=== PATIENT | female | born 1980 | race Caucasian/White ===

== ENCOUNTER 2018-01-25 11:12 | Emergency (ER) | payer OTHER ==
[2018-01-25 11:41] LABS: Urine Blood NEGATIVE (NEG); Urine Glucose NEGATIVE (NEG); Urine Protein NEGATIVE (NEG); Urine Specific Gravity 1.015 (1.005-1.030); Urine pH 5.5 (5.0-7.0)
[2018-01-25] MEDS ORDERED: LIDOCAINE VISCOUS 2% SOLN 15 ML UDC ONE (11:55)
[2018-01-25] MEDS ORDERED: MAGNE/ALUM HYDROXD 30 ML UCUP ONE (11:56)
[2018-01-25] MEDS ORDERED: ASPIRIN 81 MG CHEWABLE TABLET ONE (11:57)
[2018-01-25] MEDS ORDERED: PANTOPRAZOLE 40 MG INJ ONE (11:57)
[2018-01-25] MEDS ORDERED: NA CHLORIDE 0.9% 500 ML ONE (11:57)
[2018-01-25 12:07] LABS: Absolute Lymphocytes (CBC) 1.9 K/uL (0.7-4.9); Absolute Monocytes 0.8 K/uL (0.1-1.3); Absolute Neutrophil 6.2 K/uL (1.8-8.0); Basophils % 0.7 % (0-1.3); Eosinophils % 2.8 % (0-4.4); Hematocrit 45.4 % (36.0-45.0); Lymphocytes % 20.7 % (15.3-44.8); MCH 30.1 pg (27.0-35.0); MCV 91.1 fL (80-100); MPV 9.6 fL (7.6-11.3); Monocytes % 8.5 % (3.3-12.3); RBC Red Blood Cell Count 4.99 M/uL (3.86-4.86)
[2018-01-25 12:12] LABS: Protime INR 1.09
[2018-01-25] MEDS ORDERED: FAMOTIDINE 20 MG/2 ML VIAL IV ONE (12:16)
--- NOTE | 2018-01-25 12:23 | RAD REPORT ---
EXAM DESCRIPTION: RAD - Chest Single View - 01/25/2018 12:17 pm CLINICAL HISTORY: CHEST PAIN Chest pain. COMPARISON: No comparisons FINDINGS: Portable technique limits examination quality. The lungs are grossly clear. The heart is normal in size. No displaced fractures. IMPRESSION: No acute intrathoracic process suspected.
[2018-01-25 12:28] LABS: ALT/SGPT 31 U/L (12-78); AST/SGOT 17 U/L (15-37); Albumin 3.6 g/dL (3.4-5.0); Alkaline Phosphatase 92 U/L (45-117); BUN Blood Urea Nitrogen 13 mg/dL (7-18); Bicarbonate 30 mmol/L (21-32); Bilirubin Direct 0.1 mg/dL (0-0.2); Bilirubin Total 0.4 mg/dL (0.2-1.0); CKMB Creatine Kinase MB < 1.0 ng/mL (0.3-3.6); Creatine Phosphokinase 46 U/L (26-192); Glucose Level 101 mg/dL (74-106); NT PRO-BNP 143 pg/mL (<125); Potassium 4.5 mmol/L (3.5-5.1); Protein, Total 7.5 g/dL (6.4-8.2); Sodium Level 141 mmol/L (136-145)
--- NOTE | 2018-01-25 15:05 | EDPHYS ---
Physician Documentation [facility] Name: Amina Estrada Age: 37 yrs Sex: Female : 1980 Arrival Date: 01/25/2018 Time: 11:15 Bed 20 Private MD: None, None ED Physician Chris Pepper HPI: 01/25 11:40 This 37 yrs old Female presents to ER via Ambulatory with complaints of Chest cp Pain. 11:41 The patient or guardian reports chest pain that is located primarily in the substernal cp area, anterior chest wall, bilaterally. The pain does not radiate. The chest pain is described as a pressure. Duration: The patient or guardian reports a single episode, that is still ongoing, and unchanged. 11:41 Associated signs and symptoms: Pertinent negatives: abdominal pain, cough, diaphoresis, cp dizziness, headache, lower extremity pain, lower extremity swelling, near syncope, palpitations, recent travel, syncope. 11:41 Severity of pain: in the emergency department the pain is unchanged despite home cp interventions. 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 - Social history:: Smoking status: Patient/guardian denies using tobacco. - Ebola Screening: : No symptoms or risks identified at this time. ROS: 11:45 Constitutional: Negative for body aches, chills, fever, poor PO intake. cp 11:45 Eyes: Negative for injury, pain, redness, and discharge. cp 11:45 ENT: Negative for drainage from ear(s), ear pain, sore throat, difficulty swallowing, difficulty handling secretions. 11:45 Cardiovascular: Positive for chest pain, Negative for edema, palpitations. 11:45 Respiratory: Negative for cough, shortness of breath, wheezing. 11:45 Abdomen/GI: Negative for abdominal pain, nausea, vomiting, and diarrhea, black/tarry stool, rectal bleeding. 11:45 Back: Positive for pain at rest. 11:45 : Negative for urinary symptoms. 11:45 Skin: Negative for cellulitis, rash. 11:45 Neuro: Negative for altered mental status, dizziness, headache, syncope, near syncope, weakness. 11:45 All other systems are negative. Exam: 11:48 Constitutional: The patient appears in no acute distress, alert, awake, cp non-diaphoretic, non-toxic, well developed, well nourished, obese. 11:48 Head/Face: Normocephalic, atraumatic. Eyes: Pupils equal round and reactive to light, cp extra-ocular motions intact. Lids and lashes normal. Conjunctiva and sclera are non-icteric and not injected. Cornea within normal limits. Periorbital areas with no swelling, redness, or edema. ENT: Nares patent. No nasal discharge, no septal abnormalities noted. Tympanic membranes are normal and external auditory canals are clear. Oropharynx with no redness, swelling, or masses, exudates, or evidence of obstruction, uvula midline. Mucous membranes moist. Neck: Trachea midline, no thyromegaly or masses palpated, and no cervical lymphadenopathy. Supple, full range of motion without nuchal rigidity, or vertebral point tenderness. No Meningismus. 11:48 Chest/axilla: Inspection: normal, Palpation: crepitus, is not appreciated, tenderness, that is mild, of the mid-sternal area, that partially reproduces the patient's complaints. 11:48 Cardiovascular: Rate: normal, Rhythm: regular, Pulses: Pulses are 2+ in right radial artery and left radial artery. Edema: is not appreciated, JVD: is not appreciated. 11:48 Respiratory: the patient does not display signs of respiratory distress, Respirations: normal, no use of accessory muscles, no retractions, no splinting, no tachypnea, labored breathing, is not present, Breath sounds: are clear throughout, no decreased breath sounds, no stridor, no wheezing. 11:48 Abdomen/GI: Inspection: obese Palpation: abdomen is soft and non-tender, in all quadrants, rebound tenderness, is not appreciated, voluntary guarding, is not appreciated, involuntary guarding, is not appreciated. 11:48 Back: pain, that is mild, ROM is normal. 11:48 Skin: cellulitis, is not appreciated, no rash present. 11:48 Neuro: Orientation: to person, place \T\ time. Mentation: is normal, Cerebellar function: is grossly normal, Motor: moves all fours, strength is normal, Sensation: no obvious gross deficits. 12:27 ECG was reviewed by the Attending Physician. cp 14:44 ECG was reviewed by the Attending Physician. cp Vital Signs: 11:25 BP 132 / 82; Pulse 84; Resp 15; Temp 97.0(TE); Pulse Ox 98% on R/A; Weight 144.7 kg lk1 (R); Height 5 ft. 4 in. (162.56 cm) (R); Pain 0/10; 12:30 BP 153 / 91; Pulse 75; Resp 14; Pulse Ox 95% on R/A; em 13:30 BP 142 / 86; Pulse 71; Resp 15; Temp 97.4; Pulse Ox 100% on R/A; em 14:30 BP 142 / 76; Pulse 68; Resp 16; Pulse Ox 94% on R/A; em 15:26 BP 137 / 66; Pulse 77; Resp 16; Pulse Ox 99% on R/A; em 11:25 Body Mass Index 54.76 (144.70 kg, 162.56 cm) lk1 MDM: 11:19 Patient medically screened. cp 12:00 Differential diagnosis: abnormal EKG, acute myocardial infarction, acute pericarditis, cp gastroesophageal reflux disease (GERD), pancreatitis, pleurisy, pneumonia, pneumothorax, pulmonary embolus, stable angina, thoracic aortic disection, unstable angina. 15:02 Data reviewed: vital signs, nurses notes, lab test result(s), EKG, radiologic studies, cp plain films. 15:02 Test interpretation: by ED physician or midlevel provider: ECG, plain radiologic cp studies. 15:02 Counseling: I had a detailed discussion with the patient and/or guardian regarding: the cp historical points, exam findings, and any diagnostic results supporting the discharge/admit diagnosis, lab results, radiology results, the need for outpatient follow up, a public health dentist, to return to the emergency department if symptoms worsen or persist or if there are any questions or concerns that arise at home. 15:02 Response to treatment: the patient's symptoms have markedly improved after treatment, cp and as a result, I will discharge patient. Special discussion: Based on the patient's history, exam, and Dx evaluation, there is no indication for emergent intervention or inpatient Tx. It is understood by the patient/guardian that if the Sx's persist or worsen they need to return immediately for re-evaluation. 01/25 11:37 Order name: Urine Dipstick--Ancillary (enter results); Complete Time: 12:31 em1 01/25 11:37 Order name: Urine --Ancillary (enter results); Complete Time: 12:31 em1 01/25 11:40 Order name: Basic Metabolic Panel; Complete Time: 12:31 cp 01/25 12:31 Interpretation: Normal except: GFR 70. cp 01/25 11:40 Order name: CBC with Diff; Complete Time: 12:31 cp 01/25 12:32 Interpretation: Normal except: RBC 4.99; HCT 45.4. cp 01/25 11:40 Order name: Ckmb; Complete Time: 12:31 cp 01/25 11:40 Order name: CPK; Complete Time: 12:31 cp 01/25 11:40 Order name: LFT's; Complete Time: 12:31 cp 01/25 11:40 Order name: Magnesium; Complete Time: 12:31 cp 01/25 11:40 Order name: NT PRO-BNP; Complete Time: 12:31 cp 01/25 12:32 Interpretation: Abnormal: NT PRO-BNP 143. cp 01/25 11:40 Order name: PT-INR; Complete Time: 12:31 cp 01/25 11:40 Order name: Ptt, Activated; Complete Time: 12:31 cp 01/25 11:40 Order name: Troponin (emerg Dept Use Only); Complete Time: 12:31 cp 01/25 12:32 Interpretation: Reviewed. cp 01/25 11:40 Order name: XRAY Chest (1 view); Complete Time: 12:31 cp 01/25 14:14 Order name: Troponin (emerg Dept Use Only); Complete Time: 15:00 ss 01/25 15:00 Interpretation: Reviewed. cp 01/25 11:40 Order name: Urine Test (obtain specimen); Complete Time: 11:51 cp 01/25 11:40 Order name: EKG; Complete Time: 11:40 cp 01/25 11:40 Order name: Cardiac monitoring; Complete Time: 12:18 cp 01/25 11:40 Order name: EKG - Nurse/Tech; Complete Time: 12:18 cp 01/25 11:40 Order name: IV Saline Lock; Complete Time: 12:18 cp 01/25 11:40 Order name: Labs collected and sent; Complete Time: 12:18 cp 01/25 11:40 Order name: O2 Per Protocol; Complete Time: 12:18 cp 01/25 11:40 Order name: O2 Sat Monitoring; Complete Time: 12:18 cp 01/25 11:40 Order name: Urine Dipstick-Ancillary (obtain specimen); Complete Time: 11:51 cp 01/25 14:14 Order name: EKG; Complete Time: 14:14 ss 01/25 14:14 Order name: EKG - Nurse/Tech; Complete Time: 15:16 ss EC:27 Rate is 63 beats/min. Rhythm is regular. CA interval is normal. QRS interval is normal. cp QT interval is normal. No ST changes noted. Interpreted by me. Reviewed by me. 14:44 Rate is 64 beats/min. Rhythm is regular. CA interval is normal. QRS interval is normal. cp QT interval is normal. No ST changes noted. Interpreted by me. Reviewed by me. Administered Medications: 12:13 Drug: NS 0.9% 500 ml Route: IV; Rate: bolus; Site: right antecubital; em 12:52 Follow up: IV Status: Completed infusion; IV Intake: 500ml em 12:14 Drug: Aspirin Chewable Tablet 324 mg Route: PO; em 12:35 Follow up: Response: No adverse reaction em 12:14 Drug: GI Cocktail without - (Maalox Suspension 30 ml, Lidocaine Liquid 2 % 15 em ml) Route: PO; 12:52 Follow up: Response: No adverse reaction; Marked relief of symptoms em 12:14 Not Given (Patient Refused): ProTONIX 40 mg IVP once ss 12:19 Drug: Pepcid 20 mg Route: IVP; Site: right antecubital; ss 12:52 Follow up: Response: No adverse reaction em 12:52 Not Given (Patient Refused): TORadol 30 mg IVP once em Disposition: 18:34 Co-signature as Attending Physician, Chris Pepper MD. Disposition: 01/25/18 15:04 Discharged to Home. Impression: Chest pain, unspecified. - Condition is Stable. - Discharge Instructions: Nonspecific Chest Pain, Aspirin and Your Heart. - Prescriptions for Pepcid 20 mg Oral Tablet - take 1 tablet by ORAL route every 12 hours for 10 days; 20 tablet. - Medication Reconciliation Form, Thank You Letter, Antibiotic Education, Prescription Opioid Use form. - Follow up: Devendra Martin MD; When: 2 - 3 days; Reason: chest pain. - Problem is new. - Symptoms have improved. Signatures: Dispatcher [employer] EDMS Parisi, Lior, DIRECTOR OF COMMUNITY CENTER DIRECTOR OF COMMUNITY CENTER em Shelbi Rosario RN RN ss Marco A Hartman PA PA cp Yancy Liz RN RN lk1 Chris Pepper MD MD gs Corrections: (The following items were deleted from the chart) 15:26 15:04 01/25/2018 15:04 Discharged to Home. Impression: Chest pain, unspecified. em Condition is Stable. Forms are Medication Reconciliation Form, Thank You Letter, Antibiotic Education, Prescription Opioid Use. Follow up: Devendra Martin; When: 2 - 3 days; Reason: chest pain. Problem is new. Symptoms have improved. cp
--- NOTE | 2018-01-25 15:05 | ER ---
Nurse's Notes [facility] Name: Amina Estrada Age: 37 yrs Sex: Female : 1980 Arrival Date: 01/25/2018 Time: 11:15 Bed 20 Private MD: None, None Diagnosis: Chest pain, unspecified Presentation: 01/25 11:22 Presenting complaint: Patient states: "I have been having chest pains since yesterday, lk1 it feels like someone is stabbing me in the back too. I think it is reflux and I am being paranoid.". Transition of care: patient was not received from another setting of care. Onset of symptoms was January 24, 2018. Risk Assessment: Do you want to hurt yourself or someone else? Patient reports no desire to harm self or others. Initial Sepsis Screen: Does the patient meet any 2 criteria? No. Patient's initial sepsis screen is negative. Does the patient have a suspected source of infection? No. Patient's initial sepsis screen is negative. Care prior to arrival: None. 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 - Social history:: Smoking status: Patient/guardian denies using tobacco. - Ebola Screening: : No symptoms or risks identified at this time. Screenin:27 Abuse screen: Denies threats or abuse. Nutritional screening: No deficits noted. em Tuberculosis screening: No symptoms or risk factors identified. Fall Risk None identified. Assessment: 11:45 General: Appears in no apparent distress. uncomfortable, Behavior is calm, cooperative. em Pain: Complains of pain in mid-sternal area Pain radiates to posterior cervical area Pain began 1 day ago. Neuro: Level of Consciousness is awake, alert, obeys commands, Oriented to person, place, time, situation. Cardiovascular: Capillary refill < 3 seconds Patient's skin is warm and dry. Cardiovascular: Cardiovascular: Reports nausea, shortness of breath. Respiratory: Airway is patent Respiratory effort is even, unlabored, Respiratory pattern is regular, symmetrical. GI: Abdomen is obese. : Urine is clear. Derm: Skin is intact, Skin is pink, warm \\T\\ dry. Derm: Skin is. Musculoskeletal: Capillary refill is > 3 seconds, in bilateral toes. Range of motion: intact in all extremities. 12:00 General: The previous assessment is accurate, call light remains within reach. . ss 12:45 Reassessment: Patient appears in no apparent distress at this time. Patient and/or em family updated on plan of care and expected duration. Pain level reassessed. Patient is alert, oriented x 3, equal unlabored respirations, skin warm/dry/pink. pt refused any pain medication, DEWAYNE Strickland notified. 13:45 Reassessment: Patient appears in no apparent distress at this time. Patient and/or em family updated on plan of care and expected duration. Pain level reassessed. Patient denies pain at this time. Patient states symptoms have improved. 14:30 Reassessment: Patient appears in no apparent distress at this time. Patient and/or em family updated on plan of care and expected duration. Pain level reassessed. Patient is alert, oriented x 3, equal unlabored respirations, skin warm/dry/pink. EKG and troponin repeated. 15:25 Reassessment: Patient appears in no apparent distress at this time. Patient and/or em family updated on plan of care and expected duration. Pain level reassessed. Patient is alert, oriented x 3, equal unlabored respirations, skin warm/dry/pink. Patient denies pain at this time. Patient states feeling better. Vital Signs: 11:25 BP 132 / 82; Pulse 84; Resp 15; Temp 97.0(TE); Pulse Ox 98% on R/A; Weight 144.7 kg lk1 (R); Height 5 ft. 4 in. (162.56 cm) (R); Pain 0/10; 12:30 BP 153 / 91; Pulse 75; Resp 14; Pulse Ox 95% on R/A; em 13:30 BP 142 / 86; Pulse 71; Resp 15; Temp 97.4; Pulse Ox 100% on R/A; em 14:30 BP 142 / 76; Pulse 68; Resp 16; Pulse Ox 94% on R/A; em 15:26 BP 137 / 66; Pulse 77; Resp 16; Pulse Ox 99% on R/A; em 11:25 Body Mass Index 54.76 (144.70 kg, 162.56 cm) lk1 ED Course: 11:15 Patient arrived in ED. sb2 11:16 None, None is Private Physician. sb2 11:17 Marco A Hartman PA is PHCP. cp 11:17 Chris Pepper MD is Attending Physician. cp 11:22 Lior Parisi LVN is Primary Nurse. em 11:24 Triage completed. lk1 11:26 Arm band placed on right wrist. lk1 11:27 Patient has correct armband on for positive identification. Placed in gown. Bed in low em position. Call light in reach. Side rails up X2. 11:27 No provider procedures requiring assistance completed. Patient maintains SpO2 em saturation greater than 95% on room air. 11:30 equipment monitor phototypesetting on. Pulse ox on. NIBP on. em 12:18 XRAY Chest (1 view) In Process Unspecified. EDMS 12:21 EKG done, by ED staff, reviewed by Marco A BUCHANAN. jp3 15:03 Devendra Martin MD is Referral Physician. cp 15:23 IV discontinued, intact, bleeding controlled, No redness/swelling at site. Pressure em dressing applied. Administered Medications: 12:13 Drug: NS 0.9% 500 ml Route: IV; Rate: bolus; Site: right antecubital; em 12:52 Follow up: IV Status: Completed infusion; IV Intake: 500ml em 12:14 Drug: Aspirin Chewable Tablet 324 mg Route: PO; em 12:35 Follow up: Response: No adverse reaction em 12:14 Drug: GI Cocktail without - (Maalox Suspension 30 ml, Lidocaine Liquid 2 % 15 em ml) Route: PO; 12:52 Follow up: Response: No adverse reaction; Marked relief of symptoms em 12:14 Not Given (Patient Refused): ProTONIX 40 mg IVP once ss 12:19 Drug: Pepcid 20 mg Route: IVP; Site: right antecubital; ss 12:52 Follow up: Response: No adverse reaction em 12:52 Not Given (Patient Refused): TORadol 30 mg IVP once em Intake: 12:52 IV: 500ml; Total: 500ml. em Outcome: 15:04 Discharge ordered by . cp 15:24 Discharged to home ambulatory. em 15:24 Condition: good 15:24 Discharge instructions given to patient, Instructed on discharge instructions, follow up and referral plans. medication usage, Demonstrated understanding of instructions, follow-up care, medications, Prescriptions given X 1. 15:26 Patient left the ED. em Signatures: Dispatcher [employer] EDLior Bush, WATCH MANUFACTURING SUPERVISOR WATCH MANUFACTURING SUPERVISOR em Shelbi Rosario RN RN ss Marco A Hartman, PA PA Yancy Moran, RN RN lk1 Minal James sb2 Michael Aiken jp3 Corrections: (The following items were deleted from the chart) 12:13 12:03 ProTONIX 40 mg IVP in right antecubital ss ss 13:36 12:45 Reassessment: Patient appears in no apparent distress at this time. Patient em and/or family updated on plan of care and expected duration. Pain level reassessed. Patient is alert, oriented x 3, equal unlabored respirations, skin warm/dry/pink. em
--- NOTE | 2018-01-25 21:59 | EKG ---
Test Date: 2018-01-25 Test Time: 14:38:59 Wine Pasteurizer: ANGE MEASUREMENT RESULTS: Intervals: Rate: 64 NH: 154 QRSD: 88 QT: 416 QTc: 429 [place]: P: 30 NH: 154 QRS: 46 T: 40 INTERPRETIVE STATEMENTS: Normal sinus rhythm with sinus arrhythmia Normal ECG Compared to ECG 01/25/2018 12:16:28 No significant changes Electronically Signed On 01-25-18 21:58:43 CDT by Devendra Martin
--- NOTE | 2018-01-25 21:59 | EKG ---
Test Date: 2018-01-25 Test Time: 12:16:28 Preschool Head Teacher: SCOTT MEASUREMENT RESULTS: Intervals: Rate: 63 [place]: 142 QRSD: 84 QT: 406 QTc: 415 [place]: P: 37 [place]: 142 QRS: 58 T: 45 INTERPRETIVE STATEMENTS: Normal sinus rhythm with sinus arrhythmia Normal ECG No previous ECG available for comparison Electronically Signed On 01-25-18 21:58:52 CDT by Devendra Martin
== END 2018-01-25 15:26 | disposition home or self-care (01) ==
LOC: ER 11:12
DX: R07.9 Chest pain, unspecified (principal); I10 Essential (primary) hypertension; Z88.2 Allergy status to sulfonamides; Z88.5 Allergy status to narcotic agent; Z88.8 Allergy status to other drugs, medicaments and biological substances
CPT/HCPCS: 36415; 71045; 80048; 80076; 81003; 81025; 82550; 82553; 83735; 83880; 84484; 85025; 85610; 85730; 93005; 96361; 96374; 99285; C9113

== ENCOUNTER 2018-06-10 17:52 | Emergency (ER) | payer OTHER ==
--- OUTSIDE RECORDS SUMMARY | 2018-06-10 17:54 | XMS REPORT ---
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 [address]-57 25 MG/ML Jun 06, Active 1ml Sodium Subcutaneous 2016 Once a week Levothyroxine ND 71489727878 25 MCG Orally Active 1 tablet Sodium Once a day Lyrica ND 02954276851 150 MG Orally Active 1 capsule at bedtime Tuberculin ND 94034875882 27G X 1/2" 1 ML December Active 1 syringe Syringe Subcutaneous , Once a week 2016 with Methotrexate Spironolactone ND 45799298344 100 MG Orally Active 1 tablet Once a day Vitamin D [facility] [address]-64 01365 U Orally Active as directed Metformin HCl ND 88324236741 500 MG Orally Active 1 tablet once a day with meals Protonix ND 62077142333 80 MG Orally Active 1 tablets Once a day Folic Acid ND 82940011292 1 Active TAKE 1 TABLET BY MOUTH EVERY DAY Sure Comfort ND 01075980579 28G X 1/2" 1 ML Mar Active 1 syringe Insulin Syringe Subcutaneous , Once a week 2016 with mtx Folic Acid ND 39612050525 1 MG Orally Active 1 tablet Once a day Epiduo [facility] 02549096208 0.1-2.5 % Active as Externally directed Humira [facility] [address]-79 40 MG/0.8ML Orquidea Active 0.8 ml Subcutaneous 03, every 10 days [address] Zantac [facility] 89710195845 150 MG Orally Active 1 tablet Once a day at bedtime Propranolol HCl [facility] 02739070156 60 MG Orally Active 1 tablet Twice a day Vital Signs Date/Time: Jul 10, 2017 BMI 50.80 Index Weight 310 lbs Height 65.5 in Temperature 98.5 F Cardiac Monitoring Heart Rate 78 /min Blood Pressure Diastolic 70 mm Hg Blood Pressure Systolic 124 mm Hg Results Name Result Date Reference Range Unit Abnormality Flag CBC (INCLUDES DIFF/PLT) ----ABSOLUTE 2640 [id number] [id number] cells/uL N NEUTROPHILS ----MPV 11.6 94316962 7.5-12.5 fL N ----EOSINOPHILS 2.5 04444536 % N ----HEMOGLOBIN 13.7 18704178 11.7-15.5 g/dL N ----MONOCYTES 8.8 24118112 % N ----HEMATOCRIT 40.2 82966653 35.0-45.0 % N ----LYMPHOCYTES 33.5 84176886 % N ----MCV 88.4 91424806 80.0-100.0 fL N ----NEUTROPHILS 55 55784051 % N ----MCH 30.1 [id number] 27.0-33.0 pg N ----ABSOLUTE 10 98183879 0-200 cells/uL N BASOPHILS ----MCHC 34.1 71026670 32.0-36.0 g/dL N ----BASOPHILS 0.2 34147028 % N ----ABSOLUTE 120 75252635 15-500 cells/uL N EOSINOPHILS ----RDW 14.6 45499660 11.0-15.0 % N ----WHITE BLOOD 4.8 53283687 3.8-10.8 Thousand/u N CELL COUNT L ----PLATELET COUNT 212 08234023 140-400 Thousand/u N L ----ABSOLUTE 422 [id number] 200-950 cells/uL N MONOCYTES ----RED BLOOD CELL 4.55 65707743 3.80-5.10 Million/uL N COUNT ----ABSOLUTE 1608 57574495 850-3900 cells/uL N LYMPHOCYTES C-REACTIVE PROTEIN ----C-REACTIVE 5.4 01304958 <8.0 mg/L N PROTEIN SED RATE BY MODIFIED WESTERGREN ----SED RATE BY 2 [id number] < OR=20 mm/h N MODIFIED WESTERGREN COMPREHENSIVE METABOLIC PANEL W/EGFR ----SODIUM 141 10442520 135-146 mmol/L N ----BUN/CREATININE NOT APPLICABLE 33116925 6-22 (calc) RATIO ----CHLORIDE 105 77152813 98-110 mmol/L N ----POTASSIUM 4.3 12899603 3.5-5.3 mmol/L N ----CALCIUM 9.3 39760500 8.6-10.2 mg/dL N ----PROTEIN, TOTAL 6.7 15226527 6.1-8.1 g/dL N ----CARBON DIOXIDE 29 73572549 20-31 mmol/L N ----ALBUMIN/GLOBULI 1.4 57543637 1.0-2.5 (calc) N N RATIO ----eGFR NON-AFR. 96 [id number] > OR=60 mL/min/1.7 N HONDURAN 3m2 ----BILIRUBIN, 0.4 60279572 0.2-1.2 mg/dL N TOTAL ----eGFR 112 87069888 > OR=60 mL/min/1.7 N HONDURAN 3m2 ----UREA NITROGEN 13 77213913 7-25 mg/dL N (BUN) ----ALBUMIN 3.9 99168037 3.6-5.1 g/dL N ----GLOBULIN 2.8 46232858 1.9-3.7 g/dL N (calc) ----CREATININE 0.79 78615586 0.50-1.10 mg/dL N ----ALT 20 05789197 6-29 U/L N ----GLUCOSE 125 46698977 65-99 mg/dL H ----ALKALINE 80 44877010 33-115 U/L N PHOSPHATASE ----AST 15 64380532 10-30 U/L N Summary Purpose eClinicalWorks Submission
--- OUTSIDE RECORDS SUMMARY | 2018-06-10 17:54 | XMS REPORT ---
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
--- OUTSIDE RECORDS SUMMARY | 2018-06-10 17:54 | XMS REPORT ---
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
--- OUTSIDE RECORDS SUMMARY | 2018-06-10 17:54 | XMS REPORT | Continuity of Care Document ---
:1980 Author Organization Interface Problems Problem Status Onset Classification Date Comments Source Date Reported G90.50 COMPLEX Active 02/02/20 [facility] [place] SYNDROME I, Long-term use of Active Problem 04/14/2018 [facility] high-risk [facility] medication Inflammatory Active Problem 04/14/2018 [facility] arthritis [facility] Spondylarthritis Active Problem 04/14/2018 Romain Harvey Cicatrix Active Problem 02/10/2016 [facility] RSD Active Problem 02/10/2016 [facility] Medications Medication Details Route Status Patient Ordering Order Source Instructions Provider Date Humira 0.8 ml Subcutaneous Active 40 MG/0.8ML Yasmin 02/25/ Romain Subcutaneous 2017 Harvey every 10 days Diflucan 1 tablet Orally Active 100 MG Orally Larry 02/04/ Romain Three times a 2017 Harvey Week PredniSONE 3 tablets Orally Active 5 MG Orally q Larry 01/30/ Romain am with food 2017 Triamcinolone 1 application Externally Active 0.5 % Yasmin 10/16/ Romain Acetonide to affected Externally 2017 Harvey area Twice a day Pennsaid 2 Transdermal Active 2 % Yasmin 10/16/ Romain applications Transdermal 2017 Harvey to affected Twice a day area Keflex 1 capsule Orally Active 500 MG Orally Yasmin 07/18/ Romain every 12 hrs 2016 Harvey Azithromycin 2 tablets on Orally Active 250 MG Orally Yasmin 07/17/ Romain the first Once a day 2016, then 1 tablet daily for 4 days Methotrexate 1ml Subcutaneous Active 25 MG/ML Yasmin 06/06/ Romain Sodium Subcutaneous 2016 Harvey Once a week Sure Comfort 1 syringe Subcutaneous Active 28G X 1/2" 1 Yasmin 04/22/ Romain Insulin Syringe ML 2017 Harvey Subcutaneous Once a week with mtx Humira 0.8 ml Subcutaneous Active 40 MG/0.8ML Larry 01/27/ Romain Subcutaneous 2016 Harvey every 14 days Tuberculin 1 syringe Subcutaneous Active 27G X 1/2" 1 Yasmin 12/31/ Romain Syringe ML 2017 Harvey Subcutaneous Once a week with Methotrexate Meloxicam 1 tablet Orally Active 15 MG Orally Yasmin Romain as needed [place] Tums 1 tablet Orally Active 500 MG Orally Yasmin Romain PRN [place] Levothyroxine 1 tablet Orally Active 25 MCG Orally Yasmin Romain Sodium Once a day [place] Lyrica 1 capsule Orally Active 150 MG Orally Yasmin Romain at bedtime [place] Spironolactone 1 tablet Orally Active 100 MG Orally Yasmin Romain Once a day [place] Vitamin D as directed Orally Active 51311 U Yasmin Romain Orally [place] Metformin HCl 1 tablet with Orally Active 500 MG Orally Yasmin Romain meals once a day [place] Protonix 1 tablets Orally Active 80 MG Orally Yasmin Romain Once a day [place] Folic Acid TAKE 1 TABLET NA Active 1 Yasmin Romain BY MOUTH [place] EVERY DAY Folic Acid 1 tablet Orally Active 1 MG Orally [place] Romain Once a day [place] Epiduo as directed Externally Active 0.1-2.5 % Yasmin Romain Externally [place] Zantac 1 tablet at Orally Active 150 MG Orally Yasmin Romain bedtime Once a day [place] Propranolol HCl 1 tablet Orally Active 20 MG Orally Yasmin Romain Twice a day [place] Folic Acid 1 tablet Orally Active 1 MG Orally Yasmin Romain Once a day [place] Lisinopril 1 tablet Orally Active 10 MG Orally Yasmin Romain Once a day [place] Allergies, Adverse Reactions, Alerts Substance Category Reaction Severity Reaction Status Date Comments Source type Reported Psyllium Adverse anaphylaxis Adverse Active Romain Husk Reaction Reaction 8 Harvey sulfa Adverse anaphylaxis Adverse Active Romain Reaction Reaction 8 [facility] Zithromax Adverse anaphylaxis Adverse Active Romain Reaction Reaction 8 [facility] Morphine Adverse anaphylaxis Adverse Active Rom[facility] Sulfate Reaction Reaction 8 [place] Bactrim Adverse anaphylaxis Adverse Active Romain Reaction Reaction 8 [place] Gold Adverse rash Adverse Active Romain (white, Reaction Reaction 8 [facility] Yellow) Immunizations Immunization Date Given Site Status Last Updated Comments Source Results Order Results Value Reference Date Interpretation Comments Source Name Range Bone Bone THREE PHASE BONE SCAN: 02/06 - scan 3 scan - [facility] phase phase NM NM CLINICAL: Complex regional pain syndrome Read by: Haroon Mcadams MD Dictated Date/time: 02/07/16 15:37 Electronically Signed by: Haroon Mcadams MD 02/07/16 15:50 FINAL REPORT TECHNIQUE: Following the intravenous administration of 25.2 millicuries technetium 99m MDP, immediate flow and blood pool images were obtained of the bilateral feet and hands followed by subsequent delayed images of the bilateral feet and hands. COMMENTS: The blood flow images demonstrate diffuse globular uptake in the region of the left midfoot and hindfoot. The blood pool images demonstrate diffuse globular uptake throughout the left midfoot and hindf oot. The delayed images demonstrate diffuse uptake throughout the left midfoot and hindfoot. IMPRESSION: Diffuse globular uptake noted throughout the left hindfoot and midfoot on all 3 phases. This may be related to trauma versus an infectious or inflammatory arthropathy. However, complex regional pain syndrome cannot be excluded. Vital Signs Vital Sign Value Date Comments Source Weight 326.3 04/08/2018 Romain Salgadoer Height 66 04/08/2018 Romain Harvey Temperature Oral (F) 98.2 F 04/08/2018 Romain [facility] Heart Rate 76 04/08/2018 Romain [facility] Diastolic (mm Hg) 80 04/08/2018 Romain [facility] Systolic (mm Hg) 130 04/08/2018 Romain [place] Weight 321.1 02/04/2018 Romain Harvey Height 66 02/04/2018 Romain Harvey Temperature Oral (F) 97.9 F 02/04/2018 Romain [facility] Heart Rate 60 02/04/2018 Romain Harvey Diastolic (mm Hg) 72 02/04/2018 Romain Harvey Systolic (mm Hg) 122 02/04/2018 Romain Harvey Weight 319.2 01/21/2018 Romain Harvey Height 66 01/21/2018 Romain Harvey Temperature Oral (F) 97.6 F 01/21/2018 Romain Harvey Heart Rate 76 01/21/2018 Romain Harvey Diastolic (mm Hg) 84 01/21/2018 Romain Harvey Systolic (mm Hg) 134 01/21/2018 Romain Harvey Weight 315 10/16/2017 Romain Harvey Height 65 10/16/2017 Romain Harvey Temperature Oral (F) 97.1 F 10/16/2017 Romain Harvey Heart Rate 76 10/16/2017 Romain Harvey Diastolic (mm Hg) 72 10/16/2017 Romain Harvey Systolic (mm Hg) 128 10/16/2017 Romain Harvey Weight 310 07/10/2017 Romain Harvey Height 65.5 07/10/2017 Romain Harvey Temperature Oral (F) 98.5 F 07/10/2017 Romain Harvey Heart Rate 78 07/10/2017 Romain Harvey Diastolic (mm Hg) 70 07/10/2017 Romain Harvey Systolic (mm Hg) 124 07/10/2017 Romain Harvey Encounters Location Location Encounter Encounter Reason Attending ADM DC Status Source Details Type Number For Provider Date Date Visit [facility] Unknown [id number] 01/31 01/31 [facility] [id number] /[facility] [id number] [facility] Unknown [id number] 01/31 01/31 [facility] [id number] /2015 [facility] [id number] [facility] Unknown [id number] 01/31 01/31 [facility] [id number] /2015 [facility] [id number] [facility] [id number] Bob 02/06 02/07 Camron Morris /2015 [facility] Unknown [id number] 02/06 02/06 [facility] [id number] /2015 [facility] [id number] [facility] Unknown [id number] 02/06 02/06 [facility] [id number] /2015 [facility] [id number] [facility] Unknown [id number] 02/08 02/08 [facility] [id number] /2015 [facility] [id number] [facility] Procedures Procedure Code Date Perfomer Comments Source
--- OUTSIDE RECORDS SUMMARY | 2018-06-10 17:54 | XMS REPORT ---
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
--- OUTSIDE RECORDS SUMMARY | 2018-06-10 17:54 | XMS REPORT ---
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
--- OUTSIDE RECORDS SUMMARY | 2018-06-10 17:54 | XMS REPORT ---
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
--- OUTSIDE RECORDS SUMMARY | 2018-06-10 17:54 | XMS REPORT ---
[...] Start End Status Dosage System Date Date Triamcinolone [facility] 51442504564 0.5 % September Active 1 application Acetonide Externally 22, to affected Twice a day 2017 area Propranolol HCl ND 07801531544 60 MG Orally Active 1 tablet Twice a day Tuberculin [facility] 35976772590 27G X 1/2" 26 December Active 1 syringe Syringe ML 06, Subcutaneous 2016 Once a week with Methotrexate Spironolactone ND 06002886658 100 MG Orally Active 1 tablet Once a day Meloxicam ND 13486250670 15 MG Orally Active 1 tablet as needed Vitamin D [facility] [address]-48 89111 U Orally Active as directed Epiduo [facility] 67809164403 0.1-2.5 % Active as directed Externally Pennsaid ND 14167528779 2 % September Active 2 applications Transdermal , to affected Twice a day 2017 2017 area Sure Comfort ND 97595547553 28G X 1/2" Mar Active 1 syringe Insulin Syringe ML 26, Subcutaneous 2016 Once a week with mtx Protonix ND 41224756874 80 MG Orally Active 1 tablets Once a day Zantac ND 37552408956 150 MG Orally Active 1 tablet at Once a day bedtime Lyrica ND 38469751566 150 MG Orally Active 1 capsule at bedtime Humira [facility] [address]-82 40 MG/0.8ML January Active 0.8 ml Subcutaneous , every 14 days 2016 Levothyroxine [facility] 18278512497 25 MCG Orally Active 1 tablet Sodium Once a day Methotrexate [facility] [address]-00 25 MG/ML Jun 06, Active 1ml Sodium Subcutaneous 2016 Once a week Folic Acid [facility] 17808169535 1 Active TAKE 1 TABLET BY MOUTH EVERY DAY Tums [facility] 34895418417 500 MG Orally Active 1 tablet PRN Metformin HCl [facility] 03068763018 500 MG Orally Active 1 tablet with once a day meals Folic Acid [facility] 19429859113 1 MG Orally Active 1 tablet Once a day Vital Signs Date/Time: October 16, 2017 BMI 52.41 Index Weight 315 lbs Height 65 in Temperature 97.1 F Cardiac Monitoring Heart Rate 76 /min Blood Pressure Diastolic 72 mm Hg Blood Pressure Systolic 128 mm Hg Results No Known Results Summary Purpose eClinicalWorks Submission
--- OUTSIDE RECORDS SUMMARY | 2018-06-10 17:55 | XMS REPORT ---
[...] Instructions Start End Date Status Dosage Date PredniSONE [facility] 29387925721 5 MG Orally q am January 30, Mar 31, Active 3 tablets with food 2017 2017 Results No Known Results Summary Purpose eClinicalWorks Submission
--- OUTSIDE RECORDS SUMMARY | 2018-06-10 17:55 | XMS REPORT ---
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 . Answer: Yes, Are you a current everyday January 31, 2016 smoker Do you drink alcohol? . Status: No January 31, 2016 Summary Purpose eClinicalWorks Submission
--- OUTSIDE RECORDS SUMMARY | 2018-06-10 17:55 | XMS REPORT ---
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 Assessment Long-term use of high-risk Z79.899 Active medication Medications Medication Code Code Instructions Start End Status Dosage System Date Date Propranolol HCl [facility] 55693798000 20 MG Orally Active 1 tablet Twice a day Tums [facility] 28785706680 500 MG Orally Active 1 tablet PRN Folic Acid ND 32206174407 1 MG Orally Active 1 tablet Once a day Lisinopril ND 54204372971 10 MG Orally Active 1 tablet Once a day Levothyroxine ND 47760736529 25 MCG Orally Active 1 tablet Sodium Once a day Lyrica [facility] 52212609278 150 MG Orally Active 1 capsule at bedtime Zantac [facility] 65731236790 150 MG Orally Active 1 tablet Once a day at bedtime Methotrexate [facility] [address]-61 25 MG/ML Jun 06, Active 1ml Sodium Subcutaneous 2016 Once a week Humira [facility] [address]-00 40 MG/0.8ML Feb 25, Active 0.8 ml Subcutaneous 2017 every 10 days Sure Comfort [facility] 28430811996 28G X 1/2" 1 ML Apr 22, Active 1 syringe Insulin Syringe Subcutaneous 2016 Once a week with mtx Vitamin D [facility] [address]-28 88502 U Orally Active as directed Tuberculin [facility] 57840756620 27G X 1/2" 1 ML December 31, Active 1 syringe Syringe Subcutaneous 2016 Once a week with Methotrexate Vital Signs Date/Time: Apr 08, 2018 BMI 52.66 Index Weight 326.3 lbs Height 66 in Temperature 98.2 F Cardiac Monitoring Heart Rate 76 /min Blood Pressure Diastolic 80 mm Hg Blood Pressure Systolic 130 mm Hg Results Name Result Date Reference Range Unit Abnormality Flag 1055 SEDIMENTATION RATE ----SEDIMENTATION RATE 7 [id number] 0-20 MM/HOUR 1000 CBC W/AUTO DIFF ----PLATELET COUNT 218 20180408 130-400 K/UL ----MCV 87.1 09930179 80.0-100.0 fL ----HEMATOCRIT 42.0 76030922 34.0-45.0 % ----BASOPHILS 0.9 86350299 0.0-2.0 % ----MCHC 33.8 60915857 32.0-35.5 G/DL ----EOSINOPHILS 3.4 07830813 0.0-7.0 % ----MCH 29.5 40108247 27.0-34.0 PG ----MONOCYTES 10.7 62754307 4.0-13.0 % ----WBC 4.7 43683326 4.0-11.0 K/UL ----HEMOGLOBIN 14.2 17429210 11.5-15.5 G/DL ----RBC 4.82 67045007 3.80-5.10 M/UL ----LYMPHOCYTES 30.2 44696374 19.0-48.0 % ----RDW 13.5 67855094 11.0-15.0 % ----NEUTROPHILS 54.8 14501944 40.0-74.0 % 9179 COMPREHENSIVE METABOLIC PANEL ----CALC A/G RATIO 1.3 28372704 1.0-2.6 RATIO ----CALC GLOBULIN 3.1 68456657 1.9-3.7 G/DL ----ALKALINE PHOSPHATASE 84 37866207 40-112 U/L ----BILIRUBIN, TOTAL 0.4 20180408 <=1.2 MG/DL ----CHLORIDE 102 20180408 95-107 MEQ/L ----ALT 29 20180408 5-40 U/L ----POTASSIUM 4.5 26248491 3.5-5.4 MEQ/L ----AST 21 20180408 9-40 U/L ----SODIUM 141 20180408 133-146 MEQ/L ----CALC BUN/CREAT 16 20180408 6-28 RATIO ---- eGFR NON- 100 20180408 >60 ML/MIN/1.73 AMER. ----CALCIUM 9.7 20180408 8.5-10.5 MG/DL ----CARBON DIOXIDE 28 20180408 19-31 MEQ/L ----ALBUMIN 4.0 20180408 3.5-5.2 G/DL ----PROTEIN, TOTAL 7.1 20180408 6.1-8.3 G/DL ----GLUCOSE 105 20180408 70-99 MG/DL H ----BUN 12 20180408 6-20 MG/DL ----CREATININE 0.76 20180408 0.60-1.30 MG/DL ---- eGFR AMER. 116 20180408 >60 ML/MIN/1.73 5083 HIGH SENSITIVITY CRP ----HIGH SENSITIVITY CRP 5.4 20180408 SEE BELOW MG/L H Summary Purpose eClinicalWorks Submission
--- OUTSIDE RECORDS SUMMARY | 2018-06-10 17:55 | XMS REPORT ---
[...] Start Date End Date Status Dosage Humira [facility] [address] 40 MG/0.8ML Feb 25, Active 0.8 ml Subcutaneous every 2017 10 days Results No Known Results Summary Purpose eClinicalWorks Submission
--- OUTSIDE RECORDS SUMMARY | 2018-06-10 17:55 | XMS REPORT ---
:1980 Author Organization eClinicalWorks Care Team Providers Name Role Phone Bob Morris Provider Role Unavailable Encounters Encounter Location Date Unknown [facility] February 01, 2016 Unknown [facility] February 07, 2016 Problems Problem Type Condition ICD-9 Code [...]
--- OUTSIDE RECORDS SUMMARY | 2018-06-10 17:55 | XMS REPORT ---
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 Assessment Inflammatory arthritis M19.90 Active Medications Medication Code Code Instructions Start End Status Dosage System Date Date Lyrica [facility] 14983187269 150 MG Orally Active 1 capsule at bedtime Methotrexate [facility] [address]-92 25 MG/ML Jun 06, Active 1ml Sodium Subcutaneous 2016 Once a week Propranolol HCl [facility] 52541582429 60 MG Orally Active 1 tablet Twice a day Folic Acid [facility] 52165825819 1 MG Orally Active 1 tablet Once a day Zantac [facility] 18230207403 150 MG Orally Active 1 tablet Once a day at bedtime Vitamin D [facility] [address]-67 15760 U Orally Active as directed PredniSONE [facility] 75476642355 5 MG Orally q January 30Mar Active 3 tablets am with food 2017 Tums [facility] 28147762188 500 MG Orally Active 1 tablet PRN Tuberculin ND 94626173490 27G X 1/2" 1 ML December 31, Active 1 syringe Syringe Subcutaneous 2016 Once a week with Methotrexate Levothyroxine [facility] 87860052843 25 MCG Orally Active 1 tablet Sodium Once a day Humira [facility] [address]-68 40 MG/0.8ML January 27, Active 0.8 ml Subcutaneous 2016 every 14 days Sure Comfort ND 79719730681 28G X 1/2" 1 ML Sept 26, Active 1 syringe Insulin Syringe Subcutaneous 2016 Once a week with mtx Diflucan [facility] 25530334383 100 MG Orally February 04January Active 1 tablet Three times a 2017 Vital Signs Date/Time: February 04, 2018 BMI 51.82 Index Weight 321.1 lbs Height 66 in Temperature 97.9 F Cardiac Monitoring Heart Rate 60 /min Blood Pressure Diastolic 72 mm Hg Blood Pressure Systolic 122 mm Hg Results No Known Results Summary Purpose eClinicalWorks Submission
--- OUTSIDE RECORDS SUMMARY | 2018-06-10 17:55 | XMS REPORT ---
[...] Instructions Start End Date Status Dosage Date Methotrexate [facility] [address] 25 MG/ML Jun 06, Active 1ml Sodium - Subcutaneous Once 2017 a week Results No Known Results Summary Purpose eClinicalWorks Submission
--- OUTSIDE RECORDS SUMMARY | 2018-06-10 17:55 | XMS REPORT ---
[...] Start End Status Dosage System Date Date Folic Acid [facility] 66127291242 1 MG Orally Active 1 tablet Once a day Vitamin D [facility] [address]-79 24496 U Orally Active as directed Sure Comfort [facility] 34758764702 28G X 1/2" 1 ML Mar Active 1 syringe Insulin Syringe Subcutaneous , Once a week [address] [facility] 55586181646 25 MCG Orally Active 1 tablet Sodium Once a day Meloxicam [facility] 01342599462 15 MG Orally as Active 1 tablet needed Propranolol HCl [facility] 96509758269 60 MG Orally Active 1 tablet Twice a day Tums [facility] 13017017942 500 MG Orally Active [address] [facility] [address]-21 25 MG/ML May 10, Active 1ml Sodium Subcutaneous 2016 Once a week Spironolactone ND 39771894956 100 MG Orally Active 1 tablet Once a day Lyrica [facility] 98426030274 150 MG Orally Active 1 capsule at bedtime Tuberculin [facility] 37778888627 27G X 1/2" 1 ML December Active 1 syringe Syringe Subcutaneous 06, Once a week [address] [facility] [address]-87 40 MG/0.8ML January Active 0.8 ml Subcutaneous 03, every [address] [facility] 37609136926 150 MG Orally Active 1 tablet Once a day at bedtime Vital Signs Date/Time: January 21, 2018 BMI 51.51 Index Weight 319.2 lbs Height 66 in Temperature 97.6 F Cardiac Monitoring Heart Rate 76 /min Blood Pressure Diastolic 84 mm Hg Blood Pressure Systolic 134 mm Hg Results No Known Results Summary Purpose eClinicalWorks Submission
--- OUTSIDE RECORDS SUMMARY | 2018-06-10 17:55 | XMS REPORT ---
:1980 Author Organization eClinicalWorks Care Team Providers Name Role Phone Bob Morris Provider Role Unavailable Encounters Encounter Location Date Unknown [facility] February 01, 2016 Problems Problem Type Condition ICD-9 Code [...]
[2018-06-10] MEDS ORDERED: SUCRALFATE 1 GM TABLET ONE (19:36)
[2018-06-10] MEDS ORDERED: NA CHLORIDE 0.9% 1,000 ML ONE (19:36)
[2018-06-10] MEDS ORDERED: SIMETHICONE 80 MG TAB ONE (19:43)
[2018-06-10 19:54] LABS: Absolute Monocytes 0.5 K/uL (0.1-1.3); Absolute Neutrophil 3.7 K/uL (1.8-8.0); Basophils % 0.5 % (0-1.3); Eosinophils % 4.2 % (0-4.4); Hematocrit 40.1 % (36.0-45.0); Lymphocytes % 18.2 % (15.3-44.8); MCH 30.5 pg (27.0-35.0); MCV 88.1 fL (80-100); MPV 9.4 fL (7.6-11.3); Monocytes % 8.6 % (3.3-12.3); RBC Red Blood Cell Count 4.56 M/uL (3.86-4.86)
[2018-06-10 20:22] LABS: Potassium 3.9 mmol/L (3.5-5.1)
[2018-06-10 23:17] LABS: Urine Blood 3+ (NEG); Urine Glucose NEGATIVE (NEG); Urine Protein 2+ (NEG); Urine Specific Gravity 1.025 (1.005-1.030); Urine pH 5.5 (5.0-7.0)
--- NOTE | 2018-06-10 23:17 | ER ---
Nurse's Notes [facility] Name: Amina Estrada Age: 37 yrs Sex: Female : 1980 Arrival Date: 06/10/2018 Time: 17:53 Bed 13 Private MD: Diagnosis: Chest pain on breathing;Pneumonia, unspecified organism-atypical Presentation: 06/10 17:58 Presenting complaint: Patient states: SOB that started yesterday. Patient had gastric aj bypass 6 days ago. Transition of care: patient was not received from another setting of care. Onset of symptoms was June 09, 2018. Risk Assessment: Do you want to hurt yourself or someone else? Patient reports no desire to harm self or others. Initial Sepsis Screen: Does the patient meet any 2 criteria? No. Patient's initial sepsis screen is negative. Does the patient have a suspected source of infection? No. Patient's initial sepsis screen is negative. Care prior to arrival: None. 17:58 Method Of Arrival: Ambulatory 17:58 Acuity: JIA 3 Triage Assessment: 18:01 General: Appears in no apparent distress. uncomfortable, obese, Behavior is calm, aj cooperative, appropriate for age. Pain: Complains of pain in chest. Neuro: Level of Consciousness is awake, alert, obeys commands, Oriented to person, place, time, situation, Appropriate for age. Respiratory: Reports shortness of breath pain with respiration Airway is patent Respiratory effort is even, unlabored, Respiratory pattern is regular, symmetrical, Onset: The symptoms/episode began/occurred yesterday, the patient has mild shortness of breath. Derm: Skin is intact, is healthy with good turgor, Skin is pink, warm \T\ dry. normal. 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 aj Historical: - Allergies: 18:01 Morphine; aj 18:01 PSYLLIUM; aj 18:01 Sulfa (Sulfonamide Antibiotics); aj 18:01 Zithromax; aj - Home Meds: 18:01 Eliquis oral oral [Active]; Humira subcutaneous subcutaneous [Active]; Methotrexate aj Sodium Oral [Active]; Vitamin B-12 Oral [Active]; Folic Acid Oral [Active]; Vitamin D Oral [Active]; Lisinopril Oral [Active]; Propranolol Oral [Active]; - PMHx: 18:01 GERD; Hypertension; Hypothyroidism; Migraines; Rheumatoid Arthritis; Diabetes - NIDDM; aj - PSHx: 18:01 gastric sleeve; left oopherectomy; aj - Immunization history:: Adult Immunizations up to date. - Social history:: Smoking status: Patient/guardian denies using tobacco. - Ebola Screening: : Patient negative for fever greater than or equal to 101.5 degrees Fahrenheit, and additional compatible Ebola Virus Disease symptoms Patient denies exposure to infectious person Patient denies travel to an Ebola-affected area in the 21 days before illness onset No symptoms or risks identified at this time. Screenin:28 Abuse screen: Denies threats or abuse. Denies injuries from another. Nutritional ch screening: No deficits noted. Tuberculosis screening: No symptoms or risk factors identified. Fall Risk None identified. Assessment: 18:28 General: Appears in no apparent distress. comfortable, Behavior is calm, cooperative, ch appropriate for age. Pain: Denies pain. Cardiovascular: Heart tones S1 S2 present Capillary refill < 3 seconds in bilateral fingers toes Clubbing of nail beds is absent Patient's skin is warm and dry. Pulses are all present. Edema is absent. Rhythm is regular. Respiratory: Reports shortness of breath Airway is patent Respiratory effort is even, unlabored, Breath sounds are clear bilaterally. GI: No signs and/or symptoms were reported involving the gastrointestinal system. Abdomen is non-distended, obese, Bowel sounds present X 4 quads. Abd is soft X 4 quads Abdomen is tender to palpation X 4 quads. mildly tender, pt is 6 days post op, states her pain is improving. Derm: Skin is pink, warm \T\ dry. 19:00 Reassessment: Patient appears in no apparent distress at this time. Patient and/or jb4 family updated on plan of care and expected duration. Pain level reassessed. Patient is alert, oriented x 3, equal unlabored respirations, skin warm/dry/pink. 20:29 Reassessment: Delmis Abarca NP notified of critical lab value [id number]. ss 20:30 Reassessment: Patient appears in no apparent distress at this time. Patient and/or jb4 family updated on plan of care and expected duration. Pain level reassessed. Patient is alert, oriented x 3, equal unlabored respirations, skin warm/dry/pink. Pt informed to stay in bed and call for assistance. 21:30 Reassessment: Patient appears in no apparent distress at this time. Patient and/or jb4 family updated on plan of care and expected duration. Pain level reassessed. Patient is alert, oriented x 3, equal unlabored respirations, skin warm/dry/pink. 22:51 Reassessment: Patient appears in no apparent distress at this time. Patient and/or jb4 family updated on plan of care and expected duration. Pain level reassessed. Patient is alert, oriented x 3, equal unlabored respirations, skin warm/dry/pink. Pt back from CT. 23:31 Reassessment: Patient appears in no apparent distress at this time. Patient and/or jb4 family updated on plan of care and expected duration. Pain level reassessed. Patient is alert, oriented x 3, equal unlabored respirations, skin warm/dry/pink. waiting for IV bolus to finish before discharge. 06/11 00:23 Reassessment: Patient appears in no apparent distress at this time. Patient and/or jb4 family updated on plan of care and expected duration. Pain level reassessed. Patient is alert, oriented x 3, equal unlabored respirations, skin warm/dry/pink. Vital Signs: 06/10 18:01 BP 142 / 89; Pulse 86; Resp 20; Temp 97.9; Pulse Ox 99% on R/A; Weight 138.8 kg; Height aj 5 ft. 5 in. (165.10 cm); 18:28 BP 107 / 62; Pulse 68; Resp 14; Pulse Ox 99% on R/A; Pain 0/10; ch 19:07 BP 110 / 69; Pulse 82; Resp 16; Pulse Ox 100% on R/A; mt 20:32 BP 120 / 75; Pulse 78; Resp 18; Pulse Ox 99% on R/A; mt 22:39 BP 120 / 73; Pulse 78; Resp 16; Pulse Ox 98% on R/A; mt 23:31 BP 128 / 79; Pulse 85; Resp 18; Pulse Ox 98% on R/A; jb4 06/11 00:23 BP 128 / 76; Pulse 78; Resp 18; Pulse Ox 98% on R/A; jb4 06/10 18:01 Body Mass Index 50.92 (138.80 kg, 165.10 cm) ED Course: 06/10 17:53 Patient arrived in ED. as 17:59 Triage completed. aj 18:01 Arm band placed on left wrist. Patient placed in an exam room. aj 18:20 Elena Bray, RN is Primary Nurse. ch 18:28 No apparent distress. Resting quietly. ch 18:28 Patient has correct armband on for positive identification. Placed in gown. Bed in low ch position. Call light in reach. Side rails up X 1. Pulse ox on. NIBP on. Warm blanket given. PO fluids given. 18:28 No provider procedures requiring assistance completed. ch 18:59 Delmis Abarca FNP-C is PHCP. snw 18:59 Luis Lima MD is Attending Physician. snw 19:06 Report given to Felix. 19:33 Inserted saline lock: 22 gauge in right antecubital area, using aseptic technique. mt Blood collected. 21:06 Radiology exam delayed due to test not completed at this time. nj 21:23 Radiology exam delayed due to test not completed at this time. nj 21:56 Radiology exam delayed due to IV insertion attempt and/or patient not having vm2 appropriate IV at this time. 22:15 Inserted saline lock: 22 gauge in left antecubital area, using aseptic technique. mt 22:43 CT Chest For PE Angio In Process Unspecified. EDMS Administered Medications: 19:41 Drug: CarafATE 1 grams Route: PO; 4 23:23 Follow up: Response: No adverse reaction [facility] 19:41 Drug: NS 0.9% 1000 ml Route: IV; Rate: 125 ml/hr; Site: right antecubital; jb4 23:23 Follow up: Response: No adverse reaction; IV Status: Completed infusion jb4 19:48 Drug: Simethicone 120 mg Route: PO; jb4 23:23 Follow up: Response: No adverse reaction jb 23:33 Drug: Rocephin 1 grams Route: IV; Rate: calculated rate; Site: left antecubital; [facility] 23:33 Follow up: Response: No adverse reaction; IV Status: Completed infusion; Given IVP per [facility] pharmacy protocol. Intake: Outcome: 23:16 Discharge ordered by . sirisha 06/11 00:26 Patient left the ED. [facility] Signatures: Dispatcher [employer] EDMS Elena Bray, RN RN Adriana Shin, RN RN Delmis Abarca, SUPERVISOR [employer]TY PLANT-C SUPERVISOR [employer]TY PLANT-Csnw Drea Heck Shelby, DEN RN Jose Guadalupe Giron RN RN julianne Sundar Flores [facility] Becca Snell [place]
--- NOTE | 2018-06-10 23:17 | EDPHYS ---
Physician Documentation [facility] Name: Amina Estrada Age: 37 yrs Sex: Female : 1980 Arrival Date: 06/10/2018 Time: 17:53 Bed 13 Private MD: ED Physician Luis Lima HPI: 06/10 20:16 This 37 yrs old Female presents to ER via Ambulatory with complaints of snw Shortness Of Breath. 20:16 The patient has shortness of breath with light activity. Onset: The symptoms/episode snw began/occurred suddenly, 1 week(s) ago, and became persistent. Duration: The symptoms are intermittent. The patient's shortness of breath is aggravated by deep inspiration. Associated signs and symptoms: Pertinent positives: pleuritic pain to right upper chest, dyspnea on exertion. Severity of symptoms: At their worst the symptoms were moderate. The patient has not experienced similar symptoms in the past. The patient has been recently seen by a physician: recent gastric sleeve surgery, pt was placed on eliquis post surgery. 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 aj Historical: - Allergies: 18:01 Morphine; aj 18:01 PSYLLIUM; aj 18:01 Sulfa (Sulfonamide Antibiotics); aj 18:01 Zithromax; aj - Home Meds: 18:01 Eliquis oral oral [Active]; Humira subcutaneous subcutaneous [Active]; Methotrexate aj Sodium Oral [Active]; Vitamin B-12 Oral [Active]; Folic Acid Oral [Active]; Vitamin D Oral [Active]; Lisinopril Oral [Active]; Propranolol Oral [Active]; - PMHx: 18:01 GERD; Hypertension; Hypothyroidism; Migraines; Rheumatoid Arthritis; Diabetes - NIDDM; aj - PSHx: 18:01 gastric sleeve; left oopherectomy; aj - Immunization history:: Adult Immunizations up to date. - Social history:: Smoking status: Patient/guardian denies using tobacco. - Ebola Screening: : Patient negative for fever greater than or equal to 101.5 degrees Fahrenheit, and additional compatible Ebola Virus Disease symptoms Patient denies exposure to infectious person Patient denies travel to an Ebola-affected area in the 21 days before illness onset No symptoms or risks identified at this time. ROS: 20:18 Constitutional: Negative for fever, chills, and weight loss, Eyes: Negative for injury, snw pain, redness, and discharge, ENT: Negative for injury, pain, and discharge, Neck: Negative for injury, pain, and swelling, Abdomen/GI: Negative for abdominal pain, nausea, vomiting, diarrhea, and constipation, Back: Negative for injury and pain, : Negative for injury, bleeding, discharge, and swelling, MS/Extremity: Negative for injury and deformity, Skin: Negative for injury, rash, and discoloration, Neuro: Negative for headache, weakness, numbness, tingling, and seizure. 20:18 Cardiovascular: Positive for chest pain, with cough. 20:18 Respiratory: Positive for shortness of breath, on exertion. Exam: 20:19 Constitutional: This is a well developed, obese patient who is awake, alert, and in no snw acute distress. Head/Face: Normocephalic, atraumatic. Eyes: Pupils equal round and reactive to light, extra-ocular motions intact. Lids and lashes normal. Conjunctiva and sclera are non-icteric and not injected. Cornea within normal limits. Periorbital areas with no swelling, redness, or edema. ENT: Nares patent. No nasal discharge, no septal abnormalities noted. Tympanic membranes are normal and external auditory canals are clear. Oropharynx with no redness, swelling, or masses, exudates, or evidence of obstruction, uvula midline. Mucous membranes moist. Neck: Trachea midline, no thyromegaly or masses palpated, and no cervical lymphadenopathy. Supple, full range of motion without nuchal rigidity, or vertebral point tenderness. No Meningismus. Chest/axilla: Normal chest wall appearance and motion. Nontender with no deformity. No lesions are appreciated. Cardiovascular: Regular rate and rhythm with a normal S1 and S2. No gallops, murmurs, or rubs. Normal PMI, no JVD. No pulse deficits. Respiratory: Lungs have equal breath sounds bilaterally, clear to auscultation and percussion. No rales, rhonchi or wheezes noted. No increased work of breathing, no retractions or nasal flaring. Abdomen/GI: Soft, non-tender, with normal bowel sounds. No distension or tympany. No guarding or rebound. No evidence of tenderness throughout. Back: No spinal tenderness. No costovertebral tenderness. Full range of motion. Skin: Warm, dry with normal turgor. Normal color with no rashes, no lesions, and no evidence of cellulitis. MS/ Extremity: Pulses equal, no cyanosis. Neurovascular intact. Full, normal range of motion. Neuro: Awake and alert, GCS 15, oriented to person, place, time, and situation. Cranial nerves II-XII grossly intact. Motor strength 5/5 in all extremities. Sensory grossly intact. Cerebellar exam normal. Normal gait. Psych: Awake, alert, with orientation to person, place and time. Behavior, mood, and affect are within normal limits. Vital Signs: 18:01 BP 142 / 89; Pulse 86; Resp 20; Temp 97.9; Pulse Ox 99% on R/A; Weight 138.8 kg; Height aj 5 ft. 5 in. (165.10 cm); 18:28 BP 107 / 62; Pulse 68; Resp 14; Pulse Ox 99% on R/A; Pain 0/10; ch 19:07 BP 110 / 69; Pulse 82; Resp 16; Pulse Ox 100% on R/A; mt 20:32 BP 120 / 75; Pulse 78; Resp 18; Pulse Ox 99% on R/A; mt 22:39 BP 120 / 73; Pulse 78; Resp 16; Pulse Ox 98% on R/A; mt 23:31 BP 128 / 79; Pulse 85; Resp 18; Pulse Ox 98% on R/A; jb4 06/11 00:23 BP 128 / 76; Pulse 78; Resp 18; Pulse Ox 98% on R/A; jb4 06/10 18:01 Body Mass Index 50.92 (138.80 kg, 165.10 cm) MDM: 06/10 19:06 Patient medically screened. snw 22:29 Data reviewed: vital signs, nurses notes, lab test result(s). Counseling: I had a snw detailed discussion with the patient and/or guardian regarding: the historical points, exam findings, and any diagnostic results supporting the discharge/admit diagnosis. Awaiting: pt to CT now for PE protocol. 06/10 19:12 Order name: DD; Complete Time: 20:31 snw 06/10 19:12 Order name: CBC with Diff; Complete Time: 20:14 snw 06/10 19:12 Order name: Chem 7; Complete Time: 20:24 snw 06/10 20:31 Order name: CT Chest For PE Angio snw 06/10 22:33 Order name: Urine Dipstick--Ancillary (enter results); Complete Time: 23:19 em1 06/10 22:33 Order name: Urine --Ancillary (enter results); Complete Time: 23:19 em1 06/10 23:20 Order name: Misc. Order: change ivf rate to bolus; Complete Time: 23:25 snw Administered Medications: 19:41 Drug: CarafATE 1 grams Route: PO; 4 23:23 Follow up: Response: No adverse reaction jb4 19:41 Drug: NS 0.9% 1000 ml Route: IV; Rate: 125 ml/hr; Site: right antecubital; jb4 23:23 Follow up: Response: No adverse reaction; IV Status: Completed infusion 4 19:48 Drug: Simethicone 120 mg Route: PO; 4 23:23 Follow up: Response: No adverse reaction [facility] 23:33 Drug: Rocephin 1 grams Route: IV; Rate: calculated rate; Site: left antecubital; 4 23:33 Follow up: Response: No adverse reaction; IV Status: Completed infusion; Given IVP per [facility] pharmacy protocol. Disposition: 06/11 13:58 Co-signature as Attending Physician, Luis Lima MD I agree with the assessment and kdr plan of care. Disposition: 06/10/18 23:16 Discharged to Home. Impression: Chest pain on breathing, Pneumonia, unspecified organism - atypical. - Condition is Stable. - Discharge Instructions: Acute Bronchitis, Adult, Nonspecific Chest Pain, Costochondritis. - Prescriptions for cefdinir 250 mg/5 mL Oral suspension for reconstitution - take 6 milliliter by ORAL route 2 times per day; 130 milliliter. Albuterol Sulfate 90 mcg/actuation - inhale 1-2 puff by INHALATION route every 4-6 hours; 1 Inhaler. - Medication Reconciliation Form, SBAR form, Work release form, Thank You Letter, Antibiotic Education, Prescription Opioid Use form. - Follow up: Private Physician; When: 1 - 2 days; Reason: Recheck today's complaints, Continuance of care, Re-evaluation by your physician. Follow up: Emergency Department; When: As needed; Reason: Worsening of condition. Signatures: Dispatcher [employer] EDMS Adriana Grady, RN RN Luis Mruphy MD MD [facility] Delmis Abarca, INTERNAL RECRUITER-C INTERNAL RECRUITER-Csnw Jose Guadalupe Parada, RN RN jb4 Corrections: (The following items were deleted from the chart) 00:26 06/10 23:16 06/10/2018 23:16 Discharged to Home. Impression: Chest pain on breathing; jb4 Pneumonia, unspecified organism - atypical. Condition is Stable. Forms are Medication Reconciliation Form, SBAR form, Thank You Letter, Antibiotic Education, Prescription Opioid Use. Follow up: Private Physician; When: 1 - 2 days; Reason: Recheck today's complaints, Continuance of care, Re-evaluation by your physician. Follow up: Emergency Department; When: As needed; Reason: Worsening of condition. snw
[2018-06-10] MEDS ORDERED: CEFTRIAXONE/SWI 1gm 1 GM/10 ML SYR ONE (23:33)
--- NOTE | 2018-06-11 07:51 | RAD REPORT ---
EXAM DESCRIPTION: CT - Chest For Pe Angio - 06/10/2018 10:43 pm CLINICAL HISTORY: Shortness of breath since yesterday COMPARISON: None. TECHNIQUE: Dynamically enhanced axial 3 mm thick images of the chest were obtained during administra tion of <100> mL Isovue 370 IV contrast. Coronal and oblique reconstruction images were generated and reviewed. Exam utilizes a protocol for optimal evaluation of pulmonary arterial tree. Preliminary re port was generated by virtual radiologic and reviewed prior to dictation Maximum intensity projections 3D imaging was utilized All CT scans are performed using dose optimization technique as appropriate and may include automated exposure control or mA/KV adjustment according to patient size. FINDINGS: The opacification of the pulmonary arteries is suboptimal without visualization of a gross pulmonary embolus delete that the A thoracic aortic aneurysm is not noted. A pleural effusion is not seen. A pericardial effusion is not seen. A lung consolidation is not present. The lungs are clear Visualized spleen is mildly enlarged IMPRESSION: Negative for a pulmonary embolism.
== END 2018-06-11 00:26 | disposition home or self-care (01) ==
LOC: ER 17:52
DX: J18.9 Pneumonia, unspecified organism (principal); I10 Essential (primary) hypertension; E11.9 Type 2 diabetes mellitus without complications; E03.9 Hypothyroidism, unspecified; Z79.01 Long term (current) use of anticoagulants; Z88.2 Allergy status to sulfonamides; Z88.5 Allergy status to narcotic agent; Z88.8 Allergy status to other drugs, medicaments and biological substances
CPT/HCPCS: 36415; 71275; 80048; 81003; 81025; 85025; 85379; 96361; 96374; 99284; J0696; J7030; Q9967